=== PATIENT | male | born 1935 | race Caucasian/White ===

== ENCOUNTER 2020-07-28 11:56 | Emergency (ER) | payer MEDICARE, BC ==
[~2020-07-28] VITALS: Ht 182.9 cm; Wt 104.3 kg
[~2020-07-28 11:56] MED LIST: ASPI81CH PO; MECL25 PO; METO100 PO; TAMS.4ER PO
[2020-07-28] MEDS ORDERED: CEPH500 PO (16:02)
[2020-07-28] MEDS ORDERED: Norco 7.5-3251 EACH PO (16:02)
== END 2020-07-28 16:31 | disposition home or self-care (01) ==
LOC: ER 11:56
DX: S62.635B Displaced fracture of distal phalanx of left ring finger, initial encounter for open fracture (principal); I48.91 Unspecified atrial fibrillation; Z87.891 Personal history of nicotine dependence; Z23 Encounter for immunization; Z88.8 Allergy status to other drugs, medicaments and biological substances; W23.0XXA Caught, crushed, jammed, or pinched between moving objects, initial encounter
CPT/HCPCS: 11010; 73130; 90471; 90714; 99283-25; A9270-GY

== ENCOUNTER → 2022-12-30 | Outpatient (CLI) | payer MEDICARE, BC ==
[~2022-12-30] MED LIST changes: +CEPH500 PO; +Norco 7.5-3251 EACH PO
== END | disposition home or self-care (01) ==
LOC: LAB 16:11 → LAB SHORT 16:11
DX: M10.9 Gout, unspecified (principal)
CPT/HCPCS: 84550

== ENCOUNTER 2023-10-18 09:34 | Emergency (ER) | payer MEDICARE, BC ==
[~2023-10-18] VITALS: Ht 180.3 cm; Wt 102.1 kg
[2023-10-18 09:43] VITALS: BP 119/84
[2023-10-18] MEDS ORDERED: Diphth,Pertuss(Acell),Tet Vac 0.5 ML VIAL IM ONE (09:50)
== END 2023-10-18 11:37 | disposition home or self-care (01) ==
LOC: ER 09:34
DX: S01.01XA Laceration without foreign body of scalp, initial encounter (principal); W17.89XA Other fall from one level to another, initial encounter; Z79.899 Other long term (current) drug therapy; Z79.82 Long term (current) use of aspirin; I48.91 Unspecified atrial fibrillation; Z87.891 Personal history of nicotine dependence
CPT/HCPCS: 12001; 70450; 90471; 90715; 99283-25

== ENCOUNTER 2023-11-09 17:17 | Emergency (ER) | payer MEDICARE, BC ==
[~2023-11-09] VITALS: Ht 180.3 cm; Wt 102.1 kg
[2023-11-09 17:25] VITALS: BP 123/74
[2023-11-09] MEDS ORDERED: RX PP Nirmatrelvir/Ritonavir (Paxlovid) 1 CO-PACKAGE (30 Tabs) UD ONE (18:20)
[2023-11-09] MEDS ORDERED: ALBU90OI INH (18:28)
== END 2023-11-09 18:46 | disposition home or self-care (01) ==
LOC: ER 17:17
DX: U07.1 COVID-19 (principal); Z87.891 Personal history of nicotine dependence; Z79.82 Long term (current) use of aspirin; Z79.899 Other long term (current) drug therapy
CPT/HCPCS: 71046; 99283-25